=== PATIENT | male | born 1945 | race Caucasian/White ===

== ENCOUNTER 2017-08-29 05:12 | Observation (INO) | payer OTHER ==
[~2017-08-29] VITALS: Ht 167.6 cm; Wt 79.5 kg
[~2017-08-29 05:12] MED LIST: AMIO200 PO; ASPI81 PO; DOCU1CAP39 PO; FENO160T2 PO; METO50TA PO; PRAV20 PO
[2017-08-29] MEDS ORDERED: CHLORHEXIDINE GLUCONATE 2 % 1 PACK (2 CLOTHS) TOPICAL PRN (06:00)
[2017-08-29] MEDS ORDERED: POVIDONE IODINE 5% (ANTISEPSIS KIT) 4 APPLICATIONS EACH NARE PRN (06:00)
[2017-08-29] MEDS ORDERED: SODIUM CHLORID 0.9% 500 ML IV PRN (06:00)
[2017-08-29] MEDS ORDERED: VANCOMYCIN 1000 MG/NS 250 ML (for <70 kg) IV SCH ×2 (06:00)
[2017-08-29] MEDS ORDERED: CHLORHEXIDINE GLUCONATE 4% SOLN 120 ML BTL TOPICAL SCH (06:00)
[2017-08-29] MEDS ORDERED: ceFAZolin 2 GM PREMIX 50 ML IV SCH (06:00)
[2017-08-29] MEDS ORDERED: INSULIN HUMAN REGULAR 1,000 UNITS/10 ML VIAL SQ PRN (06:00)
[2017-08-29] MEDS ORDERED: LACTATED RINGER'S 1000 ML IV PRN (06:00)
[2017-08-29] MEDS ORDERED: METOPROLOL TARTRATE 25 MG TAB PO PRN (06:00)
[2017-08-29] MEDS ORDERED: FISH1000 PO (06:22)
[2017-08-29] MEDS ORDERED: ASPI-110 PO (06:23)
[2017-08-29] MEDS ORDERED: OMEP20TA PO (06:24)
[2017-08-29] MEDS ORDERED: METO25TA3 PO (06:24)
[2017-08-29] MEDS ORDERED: PRAV40TA2 PO (06:24)
[2017-08-29] MEDS ORDERED: GENTAMICIN SULFATE 80 MG/2 ML VIAL ONE (07:05)
[2017-08-29] MEDS ORDERED: XARE10TA PO (08:28)
[2017-08-29] MEDS ORDERED: WALKER/ADULT/FO1 MIS (08:28)
[2017-08-29] MEDS ORDERED: HYDR-3583 PO (08:28)
--- NOTE | 2017-08-29 09:11 | PD.OP ---
cc: Eddie Dela Cruz MD Operative Report Date of Surgery: Aug 29, 2017 Preoperative Diagnosis: Displaced left distal tibia intra-articular fracture Postoperative Diagnosis: Procedure: Open reduction internal fixation left distal tibia Anesthesia: Gen. Surgeon: Eddie Dela Cruz Toggler(s): ALLEN Seymour PA-C The surgical procedure was assisted by my physician escrow assistant. My P.A. presence was necessary throughout this case for the manipulation and positioning of the surgical extremity. My P.A. was assisting me throughout the duration of this procedure. The skill set of a physician escrow assistant was medically necessary to complete this procedure. During the surgical case the neurosurgical physician assistant was working at the back table and the physician escrow assistant was directly assisting me. Operation and Findings: This patient had a fall resulting in an a comminuted tibia pilon fracture approximately 6 weeks ago. Informed consent was obtained, and operative site was marked. The patient was seen and evaluated preoperatively. The patient's swelling had significantly improved and soft tissue appeared to be ready for surgery. Patient was brought to the OR and placed on the OR table, and given IV sedation and GETA. IV antibiotics were administered and timeout procedure was performed. The procedure began with an 8-inch incision over the anterior aspect of the ankle and distal tibia. Incision was made 1 cm lateral to the tibial crest. Subcutaneous tissue was dissected with Bovie. The anterior tibialis tendon sheath was retracted laterally. A standard anterior approach was utilized. At this point the distal tibia was evaluated. The patient had mildly comminuted fracture. There was moderate fracture healing present. Curettes and osteotomes were used to help mobilize the manager product fracture line. The fracture fragments were manipulated to achieve reduction. The articular surface was carefully restored and K-wires were used to hold provisional fixation. There was a large posterior fragment which was reduced. A large pointed clamp was used to compress the anterior and posterior fragments. Multiplanar fluoroscopy confirmed appropriate alignment of the articular surface. Lag screws were placed to compress fracture fragments. A Synthes distal tibial plate was selected. The plate was provisionally held to bone with K-wires. 3.5 cortical screws were used to compress plate to bone. 2.7 cortical screws were used to compress plate to bone distally. Multiple locking screws were now placed distally. A second 2.7 plate was contoured to fit the medial aspect of distal tibia. The plate was provisionally held to bone with K-wires. 2.7 cortical screws were used to compress plate to bone. Additional locking screws were placed distally. K-wires were removed. Fluoroscopy confirmed the articular surface was relatively well-aligned. Fascia was closed with #1 Vicryl. Subcutaneous tissue was closed with 3-0 Vicryl. Skin was closed with 3-0 Nylon. Eddie Dela Cruz MD Aug 29, 2017 09:11
[2017-08-29] MEDS ORDERED: ONDANSETRON HCL 4 MG/2 ML VIAL IVP PRN (09:15)
[2017-08-29] MEDS ORDERED: Post-op Orders (for Pharmacy) MISC XX ONE (09:15)
[2017-08-29] MEDS ORDERED: diphenhydrAMINE HCL 25 MG CAP PO PRN (09:15)
[2017-08-29] MEDS ORDERED: SODIUM CHLORIDE 0.9% FLUSH 5 ML FLUSH IVF PRN (09:15)
[2017-08-29] MEDS ORDERED: DO NOT ADM ANY ANTICOAGULANT DRUGS PRN (09:30)
[2017-08-29] MEDS ORDERED: WHEEMIS3 (09:39)
[2017-08-29] MEDS ORDERED: CALCTAB19 PO (09:40)
[2017-08-29] MEDS: LACTATED RINGER'S 1000 ML INJ 1,000 ML IV SCH ×2 (09:45→19:29)
[2017-08-29] MEDS: KETOROLAC TROMETHAMINE 30 MG/ML (IVP) VIAL IVP SCH ×2 (09:50→17:37)
[2017-08-29] MEDS ORDERED: KETOROLAC TROMETHAMINE 30 MG/ML (IVP) VIAL ONE (09:51)
[2017-08-29] MEDS ORDERED: ACETAMINOPHEN 1000 MG/100 ML 100 ML IV ONE (09:57)
--- NOTE | 2017-08-29 10:56 | RADRPT ---
EXAM DATE/TIME: 08/29/2017 08:51 [facility] COMPARISON: No previous studies available for comparison. INDICATIONS : ORIF left ankle. MEDICAL HISTORY : Unobtainable. SURGICAL HISTORY : Unobtainable. ENCOUNTER: Initial ACUITY: 1 day PAIN SCORE: Non-responsive. LOCATION: Left ankle. FINDINGS: 4 magnified C. arm spot views show an orthopedic plate along the anterolateral cortical margin of the distal tibia with good alignment. Multiple anchoring screws noted. Distal fibula is intact. Soft tis sues are unremarkable. CONCLUSION: Limited images as detailed above. Odilon Zafar Jr., MD on August 29, 2017 at 10:54 Board Certified Radiologist. This report was verified electronically.
[2017-08-29] MEDS ORDERED: ACETAMINOPHEN 1000 MG/100 ML VIAL IV ONE (11:00)
[2017-08-29] MEDS ORDERED: ePHEDrine/NS 25 MG/5 ML SYR IV ONE (12:00)
[2017-08-29] MEDS ORDERED: ceFAZolin INJ 1,000 MG VIAL IV ONE (12:00)
[2017-08-29] MEDS ORDERED: LIDOCAINE HCL 1% PF 5 ML AMPULE OTHER ONE (12:00)
[2017-08-29] MEDS ORDERED: MIDAZOLAM HCL 2 MG/2 ML VIAL IV ONE (12:00)
[2017-08-29] MEDS ORDERED: DEXAMETHASONE SOD PHOS 4 MG/ML VIAL IV ONE (12:00)
[2017-08-29] MEDS ORDERED: NEOSTIGMINE 3 MG/3 ML SYR IV ONE (12:00)
[2017-08-29] MEDS ORDERED: PHENYLEPH/NS 1000 MCG/10 ML SYR IV ONE (12:00)
[2017-08-29] MEDS ORDERED: GLYCOPYRROLATE 1 MG/5 ML SYRINGE IV PUSH ONE (12:00)
[2017-08-29] MEDS ORDERED: ONDANSETRON HCL 4 MG/2 ML VIAL IV PUSH ONE (12:00)
[2017-08-29] MEDS ORDERED: ROCURONIUM INJ 50 MG/5 ML SYRINGE IV PUSH ONE (12:00)
[2017-08-29] MEDS: CALCIUM/VITAMIN D 250 MG/125 U TAB PO SCH ×2 (15:02→17:35)
[2017-08-29] MEDS: ceFAZolin 2 GM PREMIX 50 ML IV SCH ×2 (15:02→23:38)
[2017-08-29] MEDS: VANCOMYCIN INJ 1,000 MG in SODIUM CHLOR 0.9% 250 ML INJ 250 ML IV SCH (17:35)
[2017-08-29 17:52] VITALS: O2SAT 94
[2017-08-29] MEDS: ACETAMINOPHEN/HYDROcodone 325 MG/10 MG TAB PO PRN (19:28)
[2017-08-29] MEDS ORDERED: SODIUM CHLORIDE 0.9% FLUSH 5 ML FLUSH IVF SCH (21:00)
[2017-08-29 21:20] VITALS: BP 136/84; PULSE 69; RESP 17; TEMP 98.1; O2SAT 95
--- NOTE | 2017-08-29 21:53 | EKG ---
Date Performed: 08/29/2017 Time Performed: 06:38:46 PTAGE: 71 years EKG: Sinus rhythm WITH FIRST DEGREE AV BLOCK POSSIBLE INFERIOR MYOCARDIAL INFARCTION , PROBABLY OLD NONSPECIFIC T WAVE CHANGES ABNORMAL ECG Compared to prior tracing no significant change DOCTOR: Lulu Mckeon Interpretating Date/Time 08/29/2017 21:53:26
[2017-08-30] MEDS: ACETAMINOPHEN/HYDROcodone 325 MG/10 MG TAB PO PRN ×4 (00:33→14:11)
[2017-08-30 00:45] VITALS: BP 125/70; PULSE 73; RESP 17; TEMP 97; O2SAT 100
[2017-08-30] MEDS: LACTATED RINGER'S 1000 ML INJ 1,000 ML IV SCH (04:35)
[2017-08-30] MEDS: KETOROLAC TROMETHAMINE 30 MG/ML (IVP) VIAL IVP SCH (04:35)
[2017-08-30] MEDS: VANCOMYCIN INJ 1,000 MG in SODIUM CHLOR 0.9% 250 ML INJ 250 ML IV SCH (04:35)
[2017-08-30 04:45] VITALS: BP 132/69; PULSE 73; RESP 17; TEMP 96.9; O2SAT 96
--- NOTE | 2017-08-30 07:08 | PD.ORT.PN ---
Subjective Subjective Remarks POD 1 s/p ORIF left distal tibia doing well. reports that block still working. Objective Vitals Vital Signs Date Time Temp Pulse Resp B/P (MAP) Pulse Ox O2 Delivery O2 Flow Rate FiO2 08/30/17 00:45 97.0 73 17 125/70 (88) 100 08/29/17 21:20 98.1 69 17 136/84 (101) 95 08/29/17 18:39 16 08/29/17 17:52 94 21 08/29/17 13:40 98.2 67 17 122/60 (80) 95 Room Air 08/29/17 12:30 71 19 132/70 (90) 98 Nasal Cannula 2 08/29/17 11:45 78 19 143/68 (93) 98 Nasal Cannula 2 08/29/17 11:30 63 17 138/65 (89) 98 Nasal Cannula 2 08/29/17 11:15 72 18 123/65 (84) 98 Nasal Cannula 2 08/29/17 11:00 63 18 132/65 (87) 98 Nasal Cannula 2 08/29/17 10:30 61 18 154/70 (98) 98 Nasal Cannula 3 08/29/17 10:15 79 16 147/68 (94) 98 Nasal Cannula 3 08/29/17 10:00 85 19 149/68 (95) 98 Nasal Cannula 3 08/29/17 09:45 77 13 174/72 (106) 90 Nasal Cannula 3 08/29/17 09:35 97.8 114 19 129/92 (104) 94 Room Air I/O 08/29/17 08/29/17 08/29/17 08/30/17 08/30/17 08/30/17 07:00 15:00 23:00 07:00 15:00 23:00 Intake Total 1450 ml 950 ml Output Total 150 ml Balance 1300 ml 950 ml Intake IV Total 750 ml 950 ml Other 700 ml Output Estimated Blood Loss 150 ml Objective Remarks LLE: +short leg splint. intact. NVI Assessment & Plan Assessment and Plan 1) Left Distal Tibia Fx s/p ORIF - POD 1 -NWB -elevate -maintain splint at all times -plan for DC home today -f/u with [facility] or [facility] in 2 weeks Matteo Rodrigues Aug 30, 2017 07:08
--- NOTE | 2017-08-30 07:26 | HHI.DS ---
Discharge Summary Admission Date Aug 29, 2017 at 09:06 Discharge Date: Aug 30, 2017 Admitting Diagnosis Left Distal Tibia fracture Diagnosis: (1) Closed fracture of left distal tibia Diagnosis: Principal ICD Codes: S82.302A - Unspecified fracture of lower end of left tibia, initial encounter for closed fracture Procedures ORIF Left Distal tibia PE at Discharge LLE: +short leg splint. intact. NVI Hospital Course Patient admitted from outpatient basis for ORIf left distal tibia. Admitted to . Nerve block administered in PACU. Pain well controlled POD 1. Patient hemodynamically stable, out of bed with walker, pain controlled, and fit for discharge home. He will remain NWB and miantain splint at all times. he will elevate his ankle. He will follow up in the office in [address] Berman or his PA. Pt Condition on Discharge: Good Discharge Disposition: Discharge Home Discharge Instructions Diet Instructions: As Tolerated, No Restrictions Activities You Can Perform: Non Weight Bearing Follow up Referrals: Orthopedics - 2 Weeks @ [facility] with Eddie Berman MD New Medications: Calcium Carbonate-Vitamin D (Calcium 600+D 200) 600-200 Mg-Unit Tab 1 TAB PO BID for Nutritional Supplement, #90 TAB 0 Refills Hydrocodone-Acetaminophen (Hydrocodone-Acetaminophen) 10-325 mg Tab 1 TAB PO Q4H PRN for PAIN, #60 TAB 0 Refills Rivaroxaban (Xarelto) 10 Mg Tab 10 MG PO DAILY for Blood Clot Prevention for 14 Days, #14 TAB 0 Refills Walker/Adult/Folding (Walker/Adult/Folding) 1 Mis Mis EA .ROUTE DIRECTED, #1 0 Refills Wheelchair Elevated Leg (Wheelchair Elevated Leg) 1 Mis Mis EA .ROUTE DIRECTED, #1 0 Refills Continued Medications: Aspirin DR (Aspirin 81) 81 Mg Tabdr 81 MG PO DAILY, TAB 0 Refills Metoprolol Tartrate (Metoprolol Tartrate) 25 Mg Tab 25 MG PO BID, #60 TAB 0 Refills [place]-3 Fatty Acids (Fish Oil) 340 Mg-1,000 Mg Cap 1200 MG PO DAILY Omeprazole (Omeprazole) 20 Mg Tab 20 MG PO DAILY, #30 TAB 0 Refills Pravastatin (Pravastatin) 40 Mg Tab 40 MG PO DAILY for Cholesterol Management, #30 TAB 0 Refills Matteo Rodrigues Aug 30, 2017 07:26
[2017-08-30 08:00] VITALS: BP 142/71; PULSE 71; RESP 18; TEMP 96.2; O2SAT 95
[2017-08-30] MEDS ORDERED: ENOXAPARIN SODIUM 40 MG/0.4 ML SYRINGE SQ SCH (09:00)
[2017-08-30] MEDS: CALCIUM/VITAMIN D 250 MG/125 U TAB PO SCH ×2 (09:11→14:11)
[2017-08-30] MEDS: ceFAZolin 2 GM PREMIX 50 ML IV SCH (09:12)
[2017-08-30 09:25] VITALS: O2SAT 95
[2017-08-30] MEDS ORDERED: INFLUENZA VIRUS VACCINE (QUADRIVALENT) 0.5 ML SYR IM ONE (10:00)
[2017-08-30 12:00] VITALS: BP 126/64; PULSE 59; RESP 18; TEMP 97; O2SAT 98
== END 2017-08-30 14:16 | disposition home or self-care (01) ==
LOC: HSDC 05:12 → HSDI 09:06 → N06A 14:02
PROVIDERS: ADMIT Orthopaedic Surgery Orthopaedic Trauma; ATTEND Orthopaedic Surgery Orthopaedic Trauma
DX: S82.872A Displaced pilon fracture of left tibia, initial encounter for closed fracture (principal); R94.31 Abnormal electrocardiogram [ECG] [EKG]; Z23 Encounter for immunization
CPT/HCPCS: 01480; 27827; 73600; 76000; 93005; 94150; 96361; 96365; 96372; C1713; G0378; J0131; J0690; J1100; J1580; J1650; J1885; J2250; J2370; J2405; J2710; J3010; J3370; J7050; J7120; Q2038; 90686

== ENCOUNTER 2017-10-20 15:25 | Emergency (ER) | payer OTHER ==
[~2017-10-20] VITALS: Ht 167.6 cm; Wt 75.0 kg
[~2017-10-20 15:25] MED LIST changes: -AMIO200 PO; +ASPI1TAB57 PO; -ASPI81 PO; +CALCTAB19 PO; -DOCU1CAP39 PO; -FENO160T2 PO; +FISH1000 PO; +HYDR-3583 PO; +METO25TA3 PO; -METO50TA PO; +OMEP20TA93 PO; -PRAV20 PO; +PRAV40TA2 PO; +WALKER/ADULT/FO1 MIS; +WHEEMIS3; +XARE10TA PO
[2017-10-20 15:30] VITALS: BP 145/83; PULSE 89; RESP 18; TEMP 98.2; O2SAT 98
--- NOTE | 2017-10-20 15:33 | PD ---
HPI Chief Complaint: lightheaded Time Seen by Provider: 15:31 Travel History International Travel<30 days: No Contact w/Intl Traveler<30days: No Traveled to known affect area: No History of Present Illness HPI This 72-year-old male is had an episode where he was lightheaded today. He was driving and he had very lightheaded. He felt like his heart rate was very fast. He pulled over and went into a store because he was afraid he was given a pass out. Paramedics were called. He did not have any chest pain. He was a little bit sweaty. He was a little bit short of breath. The shortness of breath has resolved. He has a history of coronary artery surgery about a year ago. He had a tooth extracted yesterday and was off his aspirin until this morning. He has had several surgeries on his left leg for a complicated wound. On 08/29 of this year he had open reduction and fixation of a complicated fracture of his left leg. PFSH Past Medical History Cancer: No Cardiovascular Problems: Yes (HX CABG X2, HX BLOOD CLOT IN HEART 20 YRS AGO) Chest Pain: No Diabetes: No Endocrine: No Gastrointestinal Disorders: No Glaucoma: No Genitourinary: No Hepatitis: No Hiatal Hernia: No Hypertension: Yes Immune Disorder: No Musculoskeletal: Yes (FX LEFT ANKLE) Neurologic: No Psychiatric: No Reproductive: No Respiratory: No Integumentary: No Thyroid Disease: No Past Surgical History Abdominal Surgery: No Body Medical Devices: PINS IN RIGHT ANKLE Cardiac Surgery: Yes (STENT PLACEMENT; HEART CATH, CABG X2) Ear Surgery: No Eye Surgery: No Genitourinary Surgery: No Joint Replacement: Yes (knee) Oral Surgery: Yes (TONSILLECTOMY) Thoracic Surgery: No Social History Alcohol Use: Yes (DAILY) Tobacco Use: No Substance Use: No Allergies-Medications (Allergen,Severity, Reaction): Coded Allergies: clopidogrel (Unverified Allergy, Severe, rash, 10/20/17) hydromorphone (Unverified Allergy, Severe, chest pain, 10/20/17) morphine (Unverified Allergy, Severe, chest pain, 10/20/17) Reported Meds & Prescriptions Reported Meds & Active Scripts Active Calcium 600+D 200 (Calcium Carbonate-Vitamin D) 600-200 Mg-Unit Tab 1 Tab PO BID Reported Metoprolol Tartrate 25 Mg Tab 25 Mg PO BID Pravastatin 40 Mg Tab 40 Mg PO DAILY Omeprazole 20 Mg Tab 20 Mg PO DAILY Aspirin 81 (Aspirin) 81 Mg Tabdr 81 Mg PO DAILY Fish Oil ([place]-3 Fatty Acids) 340 Mg-1,000 Mg Cap 1,200 Mg PO DAILY Review of Systems General / Constitutional: No: Fever, Chills Eyes: No: Diploplia, Blurred Vision HENT: Positive: Lightheadedness Cardiovascular: Positive: Palpitations, No: Chest Pain or Discomfort Respiratory: Positive: Shortness of Breath, No: Cough Gastrointestinal: No: Nausea, Vomiting Genitourinary: No: Urgency, Frequency Physical Exam Narrative GENERAL: Well-developed male SKIN: Focused skin assessment warm/dry. HEAD: Atraumatic. Normocephalic. EYES: Pupils equal and round. No scleral icterus. No injection or drainage. ENT: No nasal bleeding or discharge. Mucous membranes pink and moist. NECK: Trachea midline. No JVD. CARDIOVASCULAR: Regular rate and rhythm. No murmur appreciated. RESPIRATORY: No accessory muscle use. Clear to auscultation. Breath sounds equal bilaterally. GASTROINTESTINAL: Abdomen soft, non-tender, nondistended. Hepatic and splenic margins not palpable. MUSCULOSKELETAL: No obvious deformities. No clubbing. No cyanosis. No edema. There is a bruit on his left leg. There is no swelling of the leg or tenderness above the boot NEUROLOGICAL: Awake and alert. No obvious cranial nerve deficits. Motor grossly within normal limits. Normal speech. PSYCHIATRIC: Appropriate mood and affect; insight and judgment normal. Data Data Last Documented VS Vital Signs Date Time Temp Pulse Resp B/P (MAP) Pulse Ox O2 Delivery O2 Flow Rate FiO2 10/20/17 15:33 88 16 99 Room Air 10/20/17 15:30 98.2 145/83 (103) Orders Orders Electrocardiogram (10/20/17 15:31) Complete Blood Count With Diff (10/20/17 15:31) Troponin I (10/20/17 15:31) Magnesium (Mg) (10/20/17 15:31) Chest, Single Ap (10/20/17 15:31) Labs Laboratory Tests Test 10/20/17 15:45 White Blood Count 5.0 TH/MM3 Red Blood Count 5.04 MIL/MM3 Hemoglobin 13.6 GM/DL Hematocrit 41.1 % Mean Corpuscular Volume 81.5 FL Mean Corpuscular Hemoglobin 26.9 PG Mean Corpuscular Hemoglobin Concent 33.0 % Red Cell Distribution Width 13.5 % Platelet Count 215 TH/MM3 Mean Platelet Volume 7.8 FL Neutrophils (%) (Auto) 65.9 % Lymphocytes (%) (Auto) 23.5 % Monocytes (%) (Auto) 8.5 % Eosinophils (%) (Auto) 1.4 % Basophils (%) (Auto) 0.7 % Neutrophils # (Auto) 3.3 TH/MM3 Lymphocytes # (Auto) 1.2 TH/MM3 Monocytes # (Auto) 0.4 TH/MM3 Eosinophils # (Auto) 0.1 TH/MM3 Basophils # (Auto) 0.0 TH/MM3 CBC Comment DIFF FINAL Differential Comment MDM Medical Decision Making Medical Screen Exam Complete: Yes Emergency Medical Condition: Yes Medical Record Reviewed: Yes Differential Diagnosis Differential includes dehydration, dysrhythmia, Narrative Course KG shows normal sinus rhythm. Lab work rechecked and disposition determined by oncoming physician Vlad Camara MD Oct 20, 2017 15:33
[2017-10-20 15:51] LABS: AUTOMATED NEUTROPHIL # 3.3 TH/MM3 (1.8-7.7); BASOPHIL % 0.7 % (0.0-2.0); EOSINOPHIL # 0.1 TH/MM3 (0-0.4); EOSINOPHIL % 1.4 % (0.0-4.0); HEMATOCRIT 41.1 % (39.0-51.0); HEMO FLAGS DIFF FINAL; LYMPH % 23.5 % (9.0-44.0); LYMPHOCYTE # 1.2 TH/MM3 (1.0-4.8); MEAN CELL VOLUME 81.5 FL (80.0-100.0); MEAN CORPUSCULAR HEMOGLOBIN 26.9 PG (27.0-34.0); MONO % 8.5 % (0.0-8.0); NEUT % 65.9 % (16.0-70.0); PLATELET COUNT 215 TH/MM3 (150-450); RED BLOOD COUNT 5.04 MIL/MM3 (4.50-5.90); RED CELL DISTRIBUTION WIDTH 13.5 % (11.6-17.2)
--- NOTE | 2017-10-20 16:19 | RADRPT ---
EXAM DATE/TIME: 10/20/2017 16:02 [facility] COMPARISON: CHEST SINGLE AP, March 17, 2016, 4:52. INDICATIONS : Short of breath and light headedness. MEDICAL HISTORY : Hypertension. Cardiovascular disease SURGICAL HISTORY : Tonsillectomy. cardiac stent. Cervical fusion. ENCOUNTER: Initial ACUITY: 1 day PAIN SCORE: 0/10 LOCATION: Bilateral chest FINDINGS: Portable AP view of the chest demonstrates a normal-sized cardiac silhouette. No effusion, consolidat ion, or pneumothorax is visualized. The bones and soft tissues demonstrate no acute abnormality. Medi an sternotomy wires remain present. CONCLUSION: No acute cardiopulmonary abnormality is identified. David Templeton MD on October 20, 2017 at 16:16 Board Certified Radiologist. This report was verified electronically.
[2017-10-20 16:22] LABS: MAGNESIUM 1.7 MG/DL (1.5-2.5)
[2017-10-20 17:12] LABS: POTASSIUM 3.9 MEQ/L (3.5-5.1)
[2017-10-20 17:23] VITALS: BP 135/69; PULSE 75; RESP 16; O2SAT 96
--- NOTE | 2017-10-20 17:25 | PD ---
Physical Exam Date Seen by Provider: Oct 20, 2017 Narrative Was assumed at [address] Guardado pending laboratory evaluation. The patient presented here with a brief episode of dizziness. His symptoms have now completely resolved. Data Data Last Documented VS Vital Signs Date Time Temp Pulse Resp B/P (MAP) Pulse Ox O2 Delivery O2 Flow Rate FiO2 10/20/17 15:33 88 16 99 Room Air 10/20/17 15:30 98.2 145/83 (103) Orders Orders Electrocardiogram (10/20/17 15:31) Complete Blood Count With Diff (10/20/17 15:31) Troponin I (10/20/17 15:31) Magnesium (Mg) (10/20/17 15:31) Chest, Single Ap (10/20/17 15:31) Basic Metabolic Panel (Bmp) (10/20/17 16:21) Labs Laboratory Tests Test 10/20/17 15:45 White Blood Count 5.0 TH/MM3 Red Blood Count 5.04 MIL/MM3 Hemoglobin 13.6 GM/DL Hematocrit 41.1 % Mean Corpuscular Volume 81.5 FL Mean Corpuscular Hemoglobin 26.9 PG Mean Corpuscular Hemoglobin Concent 33.0 % Red Cell Distribution Width 13.5 % Platelet Count 215 TH/MM3 Mean Platelet Volume 7.8 FL Neutrophils (%) (Auto) 65.9 % Lymphocytes (%) (Auto) 23.5 % Monocytes (%) (Auto) 8.5 % Eosinophils (%) (Auto) 1.4 % Basophils (%) (Auto) 0.7 % Neutrophils # (Auto) 3.3 TH/MM3 Lymphocytes # (Auto) 1.2 TH/MM3 Monocytes # (Auto) 0.4 TH/MM3 Eosinophils # (Auto) 0.1 TH/MM3 Basophils # (Auto) 0.0 TH/MM3 CBC Comment DIFF FINAL Differential Comment Blood Urea Nitrogen 19 MG/DL Creatinine 0.90 MG/DL Random Glucose 102 MG/DL Calcium Level 9.0 MG/DL Sodium Level 137 MEQ/L Potassium Level 3.9 MEQ/L Chloride Level 102 MEQ/L Carbon Dioxide Level 25.0 MEQ/L Anion Gap 10 MEQ/L Estimat Glomerular Filtration Rate 83 ML/MIN Magnesium Level 1.7 MG/DL Troponin I LESS THAN 0.02 NG/ML [facility] Supervised Visit with GALLO: No Narrative Course Last Impressions Chest X-Ray 10/20/17 1531 Signed Impressions: Service Date/Time: October 16:02 - CONCLUSION: No acute cardiopulmonary abnormality is identified. David Templeton MD CBC Diagram 10/20/17 15:45 BMP Diagram 10/20/17 15:45 Calcium Level 9.0. Magnesium Level 1.7. trop < 0.02 Diagnosis Primary Impression: Dizziness Patient Instructions: Dizziness (ED), General Instructions Disposition: 01 DISCHARGE HOME Condition: Stable Rehana Ridley MD Oct 20, 2017 17:25
--- NOTE | 2017-10-20 19:00 | EKG ---
Date Performed: 10/20/2017 Time Performed: 15:43:29 PTAGE: 72 years EKG: Sinus rhythm WITH OCCASIONAL SUPRAVENTRICULAR PREMATURE COMPLEXES INFERIOR MYOCARDIAL INFARCTION ABNORMAL ECG No significant change from prior electrocardiogram. PREVIOUS TRACING : 08/29/2017 06.38 DOCTOR: Anmol Adams Interpretating Date/Time 10/20/2017 18:58:37
== END 2017-10-20 17:35 | disposition home or self-care (01) ==
LOC: PHED 15:25
DX: R42 Dizziness and giddiness (principal); R06.02 Shortness of breath; I10 Essential (primary) hypertension; Z79.899 Other long term (current) drug therapy
CPT/HCPCS: 71010; 80048; 83735; 84484; 85025; 93005; 99285